=== PATIENT | female | born 1955 | race Caucasian/White ===

== ENCOUNTER 2020-07-24 12:46 | Emergency (ER) | payer MEDICARE, OTHER ==
[2020-07-24 13:45] LABS: HEMOGLOBIN 16.5 gm/dl (12.3-15.3); RED BLOOD COUNT 5.27 M/UL (4.00-5.10); WHITE BLOOD COUNT 10.3 K/UL (4.5-11.0)
[2020-07-24 14:35] LABS: BUN/CREATININE RATIO 21 (0-10)
[2020-07-24] MEDS ORDERED: MACROBID 100 M100 MG PO (16:12)
== END 2020-07-24 16:38 | disposition home or self-care (01) ==
LOC: ER1 12:46
PROVIDERS: Physician Assistant
DX: N13.2 Hydronephrosis with renal and ureteral calculous obstruction (principal); I72.8 Aneurysm of other specified arteries; E11.9 Type 2 diabetes mellitus without complications; E87.1 Hypo-osmolality and hyponatremia; I10 Essential (primary) hypertension; F17.210 Nicotine dependence, cigarettes, uncomplicated; Z88.0 Allergy status to penicillin; Z88.2 Allergy status to sulfonamides; Z88.5 Allergy status to narcotic agent; Z79.899 Other long term (current) drug therapy
CPT/HCPCS: 74176; 80053; 81001; 82550; 82553; 83874; 84484; 85025; 93005; 99284